=== PATIENT | female | born 1945 | race Caucasian/White ===

== ENCOUNTER 2016-12-14 10:28 | Emergency (ER) | payer MEDICAID, MEDICARE ==
[~2016-12-14] VITALS: Ht 152.4 cm; Wt 51.8 kg
[~2016-12-14 10:28] MED LIST: NOCURR
[2016-12-14 10:33] VITALS: BP 132/85
[2016-12-14] MEDS ORDERED: LEVE250T55 PO (10:39)
[2016-12-14] MEDS ORDERED: CARB1TAB35 PO (10:39)
[2016-12-14] MEDS ORDERED: LOSA50TA37 PO (10:39)
[2016-12-14] MEDS ORDERED: GABA-531 PO (10:39)
[2016-12-14] MEDS ORDERED: SULFAMETHOX/TRIMETH DS 800-160 MG/TABLET PO ONE (11:00)
[2016-12-14] MEDS ORDERED: CEPHALEXIN MONOHYDRATE 500 MG CAPSULE PO ONE (11:00)
[2016-12-14] MEDS ORDERED: BACITRACIN 0.9 GM PACKET OINTMENT TP ONE (11:30)
== END 2016-12-14 11:47 | disposition home or self-care (01) ==
LOC: EMS 10:30
DX: L03.116 Cellulitis of left lower limb (principal); M19.90 Unspecified osteoarthritis, unspecified site; I10 Essential (primary) hypertension
CPT/HCPCS: 99284

== ENCOUNTER → 2017-01-06 | Outpatient (CLI) | payer MEDICARE ==
[~2017-01-06] VITALS: Ht 152.4 cm; Wt 53.4 kg
[~2017-01-06] MED LIST changes: +AMLO2.5T PO; +CARB1TAB35 PO; +GABA-531 PO; +LEVE250T55 PO; +LOSA50TA37 PO; -NOCURR; +PHEN100C23 PO
[2017-01-06 08:34] VITALS: BP 133/66
== END | disposition home or self-care (01) ==
LOC: HBOWC 07:43
PROVIDERS: ATTEND Emergency Medicine Undersea and Hyperbaric Medicine
DX: L97.821 Non-pressure chronic ulcer of other part of left lower leg limited to breakdown of skin (principal); I10 Essential (primary) hypertension; M19.90 Unspecified osteoarthritis, unspecified site

== ENCOUNTER → 2017-01-14 | Outpatient (CLI) | payer MEDICARE ==
[~2017-01-14] MED LIST changes: -LEVE250T55 PO
[2017-01-14 09:36] VITALS: BP 146/72
== END | disposition home or self-care (01) ==
LOC: HBOWC 08:56
PROVIDERS: ATTEND Emergency Medicine
DX: I87.2 Venous insufficiency (chronic) (peripheral) (principal); L97.821 Non-pressure chronic ulcer of other part of left lower leg limited to breakdown of skin; L60.3 Nail dystrophy; I10 Essential (primary) hypertension; M19.90 Unspecified osteoarthritis, unspecified site
CPT/HCPCS: 11721; 97597

== ENCOUNTER → 2017-01-29 | Outpatient (CLI) | payer MEDICARE ==
[2017-01-29 10:06] VITALS: BP 139/73
== END | disposition home or self-care (01) ==
LOC: HBOWC 09:04
PROVIDERS: ATTEND Emergency Medicine Undersea and Hyperbaric Medicine
DX: I87.2 Venous insufficiency (chronic) (peripheral) (principal); L97.821 Non-pressure chronic ulcer of other part of left lower leg limited to breakdown of skin; B35.1 Tinea unguium; I10 Essential (primary) hypertension; M19.90 Unspecified osteoarthritis, unspecified site

== ENCOUNTER → 2017-02-12 | Outpatient (CLI) | payer MEDICARE ==
[2017-02-12 09:11] VITALS: BP 160/77
== END | disposition home or self-care (01) ==
LOC: HBOWC 08:56
PROVIDERS: ATTEND Emergency Medicine
DX: I87.2 Venous insufficiency (chronic) (peripheral) (principal); L97.821 Non-pressure chronic ulcer of other part of left lower leg limited to breakdown of skin; I10 Essential (primary) hypertension; M19.90 Unspecified osteoarthritis, unspecified site; B35.1 Tinea unguium

== ENCOUNTER → 2017-02-26 | Outpatient (CLI) | payer MEDICARE ==
[2017-02-26 09:27] VITALS: BP 145/71
== END | disposition home or self-care (01) ==
LOC: HBOWC 08:45
PROVIDERS: ATTEND Emergency Medicine
DX: I87.2 Venous insufficiency (chronic) (peripheral) (principal); L97.821 Non-pressure chronic ulcer of other part of left lower leg limited to breakdown of skin; I10 Essential (primary) hypertension; B35.1 Tinea unguium; M19.90 Unspecified osteoarthritis, unspecified site; L60.3 Nail dystrophy

== ENCOUNTER 2017-03-28 17:24 | Emergency (ER) | payer MEDICARE ==
[~2017-03-28] VITALS: Ht 154.9 cm; Wt 52.3 kg
[2017-03-28] MEDS ORDERED: PERTUSS(ACELL),DIPH,TET VAC/PF 0.5 ML VIAL IM ONE (18:15)
[2017-03-28 18:27] VITALS: BP 123/68
== END 2017-03-28 18:55 | disposition home or self-care (01) ==
LOC: EMS 17:27
DX: S51.811A Laceration without foreign body of right forearm, initial encounter (principal); I10 Essential (primary) hypertension; W45.8XXA Other foreign body or object entering through skin, initial encounter; Y93.89 Activity, other specified; Y92.89 Other specified places as the place of occurrence of the external cause; Y99.8 Other external cause status
CPT/HCPCS: 99283

== ENCOUNTER 2017-08-04 10:10 | Emergency (ER) | payer MEDICARE ==
[~2017-08-04] VITALS: Ht 154.9 cm; Wt 61.4 kg
[~2017-08-04 10:10] MED LIST changes: -PHEN100C23 PO
[2017-08-04] MEDS ORDERED: PHENY100 PO (10:18)
[2017-08-04] MEDS ORDERED: PERTUSS(ACELL),DIPH,TET VAC/PF 0.5 ML VIAL IM ONE (12:00)
[2017-08-04 12:54] VITALS: BP 141/79
== END 2017-08-04 12:59 | disposition home or self-care (01) ==
LOC: EMS 10:11
DX: S51.812A Laceration without foreign body of left forearm, initial encounter (principal); I10 Essential (primary) hypertension; G71.0 Muscular dystrophy; M19.90 Unspecified osteoarthritis, unspecified site; W26.8XXA Contact with other sharp object(s), not elsewhere classified, initial encounter; Y93.E9 Activity, other interior property and clothing maintenance; Y92.89 Other specified places as the place of occurrence of the external cause; Y99.8 Other external cause status
CPT/HCPCS: 90471; 90715; 99283

== ENCOUNTER 2017-10-19 12:11 | Emergency (ER) | payer MEDICARE ==
[~2017-10-19] VITALS: Ht 154.9 cm; Wt 56.8 kg
[~2017-10-19 12:11] MED LIST changes: +PHENY100 PO
[2017-10-19 13:37] VITALS: BP 136/79
== END 2017-10-19 13:56 | disposition left against medical advice (07) ==
LOC: EMS 12:11
DX: M79.662 Pain in left lower leg (principal); R50.9 Fever, unspecified; I10 Essential (primary) hypertension; M19.90 Unspecified osteoarthritis, unspecified site
CPT/HCPCS: 99281

== ENCOUNTER 2018-03-04 14:59 | Emergency (ER) | payer MEDICARE ==
[~2018-03-04] VITALS: Ht 152.4 cm; Wt 54.5 kg
[~2018-03-04 14:59] MED LIST changes: -CARB1TAB35 PO
[2018-03-04] MEDS ORDERED: ASPI81TA39 PO (15:54)
[2018-03-04 16:33] VITALS: BP 130/85
== END 2018-03-04 16:54 | disposition home or self-care (01) ==
LOC: EMS 15:01
DX: S61.412A Laceration without foreign body of left hand, initial encounter (principal); S51.012A Laceration without foreign body of left elbow, initial encounter; S51.812A Laceration without foreign body of left forearm, initial encounter; I10 Essential (primary) hypertension; W05.0XXA Fall from non-moving wheelchair, initial encounter; Y93.89 Activity, other specified; Y92.89 Other specified places as the place of occurrence of the external cause; Y99.8 Other external cause status
CPT/HCPCS: 99283

== ENCOUNTER 2018-05-07 18:49 | Emergency (ER) | payer MEDICARE ==
[~2018-05-07] VITALS: Ht 152.4 cm; Wt 56.8 kg
[~2018-05-07 18:49] MED LIST changes: -AMLO2.5T PO; +AMLO2.5T3 PO; +ASPI81TA39 PO; +LOSA50TA25 PO; -LOSA50TA37 PO; -PHENY100 PO
[2018-05-07 19:09] VITALS: BP 108/63
[2018-05-08] MEDS ORDERED: CHOL200012 PO (12:55)
[2018-05-08] MEDS ORDERED: PHEN100C9 PO (12:55)
[2018-05-08] MEDS ORDERED: ATOR40TA71 PO (12:55)
== END 2018-05-07 19:40 | disposition left against medical advice (07) ==
LOC: EMS 18:50
DX: R53.1 Weakness (principal); I10 Essential (primary) hypertension; M19.90 Unspecified osteoarthritis, unspecified site; Z90.49 Acquired absence of other specified parts of digestive tract; Z53.21 Procedure and treatment not carried out due to patient leaving prior to being seen by health care provider

== ENCOUNTER 2018-05-08 12:37 | Emergency (ER) | payer MEDICARE ==
[~2018-05-08] VITALS: Ht 152.4 cm; Wt 54.5 kg
[2018-05-08] MEDS ORDERED: CHOL200012 PO (12:55)
[2018-05-08] MEDS ORDERED: PHEN100C9 PO (12:55)
[2018-05-08] MEDS ORDERED: ATOR40TA71 PO (12:55)
[2018-05-08 15:00] VITALS: BP 128/63
== END 2018-05-08 15:57 | disposition home or self-care (01) ==
LOC: EMS 12:38
DX: G58.8 Other specified mononeuropathies (principal); R25.2 Cramp and spasm; Z74.09 Other reduced mobility; R60.0 Localized edema; I10 Essential (primary) hypertension; Z90.49 Acquired absence of other specified parts of digestive tract; Z91.048 Other nonmedicinal substance allergy status; Z79.899 Other long term (current) drug therapy
CPT/HCPCS: 93971; 99284

== ENCOUNTER 2018-05-10 10:32 | Emergency (ER) | payer MEDICARE ==
[~2018-05-10] VITALS: Ht 152.4 cm; Wt 56.8 kg
[~2018-05-10 10:32] MED LIST changes: -ASPI81TA39 PO; +ATOR40TA71 PO; +CHOL200012 PO; +PHEN100C9 PO
[2018-05-10 11:28] LABS: BASOPHILS % (AUTO) 0.6 % (0.0-2.0); EOSINOPHILS % (AUTO) 1.9 % (1.0-6.0); HEMATOCRIT 41.5 % (36-46); HEMOGLOBIN 13.9 g/dL (12.0-16.0); LYMPHOCYTES # (AUTO) 1.3 K/uL (1.0-4.8); LYMPHOCYTES % (AUTO) 18.6 % (22.0-44.0); MEAN CORPUSCULAR HEMOGLOBIN 29.5 pg (26.0-34.0); MEAN CORPUSCULAR HGB CONC 33.6 G/dL (31.0-37.0); MEAN CORPUSCULAR VOLUME 88 fL (80-100); MONOCYTES # (AUTO) 0.8 K/uL (0.1-1.0); MONOCYTES % (AUTO) 11.8 % (2.0-9.0); NEUTROPHILS # (AUTO) 4.5 K/uL (1.8-7.7); NEUTROPHILS % (AUTO) 67.1 % (40.0-70.0); PLATELET COUNT (AUTO) 402 K/uL (150-450); RED BLOOD CELL COUNT(AUTO) 4.72 MIL/uL (4.00-5.20); RED CELL DISTRIBUTION WIDTH 13.3 % (11.5-14.5)
[2018-05-10 11:42] LABS: ANION GAP 2 mmol/L (8-16); CALCIUM, TOTAL 9.8 mg/dL (8.8-10.5); CARBON DIOXIDE 34 mmol/L (22-29); CHLORIDE 102 mmol/L (98-107); GLOMERULAR FILTR. RATE CALC > 60 mL/min (>60); GLUCOSE,RANDOM 99 mg/dL (70-110); POTASSIUM 4.4 mmol/L (3.5-5.1); SODIUM SERUM 138 mmol/L (136-145); UREA NITROGEN, BLOOD 17 mg/dL (7-18)
[2018-05-10 11:45] LABS: ALANINE AMINOTRANSFERASE 27 U/L (12-78); ALBUMIN 3.1 g/dL (3.4-5.0); ALKALINE PHOSPHATASE 238 U/L (46-116); ASPARTATE AMINOTRANSFERASE 26 U/L (15-37); BILIRUBIN,TOTAL 0.2 mg/dL (0.1-1.0); LIPASE 128 U/L (73-393); TOTAL PROTEIN, SERUM 7.4 g/dL (6.4-8.2)
[2018-05-10] MEDS ORDERED: DIPHENOXYLATE/ATROP 2.5-0.025 MG/5 ML ORAL.SYG LIQUID PO ONE (12:30)
[2018-05-10] MEDS ORDERED: CIPROFLOXACIN HCL 250 MG TABLET PO ONE (12:30)
[2018-05-10 14:03] VITALS: BP 138/71
== END 2018-05-10 14:50 | disposition home or self-care (01) ==
LOC: EMS 10:33
DX: R19.7 Diarrhea, unspecified (principal); I10 Essential (primary) hypertension; Z90.49 Acquired absence of other specified parts of digestive tract; Z79.899 Other long term (current) drug therapy; Z91.048 Other nonmedicinal substance allergy status
CPT/HCPCS: 74022

== ENCOUNTER 2018-08-28 00:13 | Emergency (ER) | payer MEDICARE ==
[~2018-08-28] VITALS: Ht 160 cm; Wt 41.0 kg
[~2018-08-28 00:13] MED LIST changes: -AMLO2.5T3 PO; +AMLO2.5T4 PO; -LOSA50TA25 PO; +LOSA50TA64 PO
[2018-08-28] MEDS ORDERED: CefTRIAXone 1 GM/DEXTROSE 50 ML IV ONE (02:30)
[2018-08-28] MEDS ORDERED: BACITRACIN 0.9 GM PACKET OINTMENT TP ONE (02:30)
[2018-08-28] MEDS ORDERED: PERTUSS(ACELL),DIPH,TET VAC/PF 0.5 ML VIAL IM ONE (02:30)
[2018-08-28] MEDS ORDERED: POTASSIUM CHL 20 MEQ/D5-0.45NS 1,000 ML IV ONE (02:30)
[2018-08-28 03:35] LABS: BASOPHILS % (AUTO) 0.4 % (0.0-2.0); EOSINOPHILS % (AUTO) 0.1 % (1.0-6.0); HEMATOCRIT 40.1 % (36-46); HEMOGLOBIN 13.2 g/dL (12.0-16.0); LYMPHOCYTES % (AUTO) 9.9 % (22.0-44.0); MEAN CORPUSCULAR HEMOGLOBIN 28.8 pg (26.0-34.0); MEAN CORPUSCULAR HGB CONC 32.9 G/dL (31.0-37.0); MEAN CORPUSCULAR VOLUME 88 fL (80-100); MONOCYTES % (AUTO) 9.8 % (2.0-9.0); NEUTROPHILS # (AUTO) 8.3 K/uL (1.8-7.7); NEUTROPHILS % (AUTO) 79.8 % (40.0-70.0); PLATELET COUNT (AUTO) 356 K/uL (150-450); RED BLOOD CELL COUNT(AUTO) 4.59 MIL/uL (4.00-5.20)
[2018-08-28 03:44] LABS: ANION GAP 7 mmol/L (8-16); CALCIUM, TOTAL 9.7 mg/dL (8.8-10.5); CARBON DIOXIDE 31 mmol/L (22-29); CHLORIDE 102 mmol/L (98-107); CREATININE 0.54 mg/dL (0.60-1.30); GLUCOSE,RANDOM 98 mg/dL (70-110); POTASSIUM 3.7 mmol/L (3.5-5.1); SODIUM SERUM 140 mmol/L (136-145); UREA NITROGEN, BLOOD 19 mg/dL (7-18)
[2018-08-28 03:46] LABS: GLOMERULAR FILTR. RATE CALC > 60 mL/min (>60)
[2018-08-28 03:50] LABS: ALANINE AMINOTRANSFERASE 51 U/L (12-78); ALBUMIN 3.1 g/dL (3.4-5.0); ALKALINE PHOSPHATASE 231 U/L (46-116); ASPARTATE AMINOTRANSFERASE 65 U/L (15-37); BILIRUBIN,TOTAL 0.3 mg/dL (0.1-1.0); LACTIC ACID 1.6 mmol/L (0.4-2.0); TOTAL PROTEIN, SERUM 6.6 g/dL (6.4-8.2)
[2018-08-28 04:30] LABS: APPEARANCE,URINE CLEAR (CLEAR); BILIRUBIN,URINE NEGATIVE (NEGATIVE); GLUCOSE, URINE (UA) NEGATIVE (NEGATIVE); KETONES,URINE 15 mg/dL (NEGATIVE); LEUKOCYTE ESTERASE ,URINE NEGATIVE (NEGATIVE); NITRATE,URINE NEGATIVE (NEGATIVE); OCCULT BLOOD,URINE TRACE (NEGATIVE); PROTEIN,URINE NEGATIVE (NEGATIVE); UROBILINOGEN,URINE 0.2 mg/dL (<=1.0)
[2018-08-28 04:33] LABS: BACTERIA,URINE Rare /HPF (None Seen)
[2018-08-28 04:34] LABS: SQUAMOUS EPITHELIAL CELL,UR Rare /LPF (None Seen)
[2018-08-28 05:22] VITALS: BP 117/73
== END 2018-08-28 06:56 | disposition short-term general hospital (02) ==
LOC: EMS 00:13
DX: S81.812A Laceration without foreign body, left lower leg, initial encounter (principal); L03.116 Cellulitis of left lower limb; R53.1 Weakness; I10 Essential (primary) hypertension; G60.0 Hereditary motor and sensory neuropathy; M19.90 Unspecified osteoarthritis, unspecified site; Z88.8 Allergy status to other drugs, medicaments and biological substances; Z79.899 Other long term (current) drug therapy; Z90.49 Acquired absence of other specified parts of digestive tract; W06.XXXA Fall from bed, initial encounter; Y93.89 Activity, other specified; Y92.89 Other specified places as the place of occurrence of the external cause; Y99.8 Other external cause status
CPT/HCPCS: 36415; 71045; 72170; 73552; 80053; 80185; 81001; 83605; 84484; 85025; 87040; 90471; 90715; 93005; 96365; 96366; 96367; 99285; J3480